=== PATIENT | female | born 1945 | race Caucasian/White ===

== ENCOUNTER 2016-07-30 07:20 | Day surgery (SDC) | payer MEDICARE ==
[~2016-07-30] VITALS: Ht 172.7 cm; Wt 78.0 kg
[~2016-07-30 07:20] MED LIST: BUPR150T9 PO; KLO1T PO; OMEP20CA11 PO; PROG1.3G2 VG; RANI150C4 PO
[2016-07-30 07:50] VITALS: BP 135/70; PULSE 56; RESP 16; O2SAT 98
[2016-07-30] MEDS ORDERED: fentaNYL-PF 50 mCg/mL 2 mL Inj IVPUSH PRN (08:00)
[2016-07-30] MEDS: 0.9% Sodium Chloride 1,000 ML ONE ×2 (08:08→08:16)
[2016-07-30 08:23] VITALS: BP 134/80; PULSE 58; RESP 14; O2SAT 95
[2016-07-30 08:38] VITALS: BP 133/77; PULSE 58; RESP 14; O2SAT 96
[2016-07-30 08:47] VITALS: BP 145/64; PULSE 59; RESP 14; O2SAT 97
--- NOTE | 2016-07-30 10:38 | ENDO ---
[address] [address] ENDOSCOPY PROCEDURE PATIENT: DJ HARRIS : 1945 MR#: [id number] ADMIT: 07/30/2016 JOB ID: [id number] DATE: 07/30/2016 PROCEDURE: Esophagogastroduodenoscopy. INDICATIONS: Epigastric pain. The patient's ASA classification is 2. Mallampati score is 2. MEDICATIONS: 1. Versed 3 mg. 2. Fentanyl 50 mcg. INSTRUMENT USED: GIF H 180 J. PROCEDURE DETAILS: After informed consent was obtained, the patient was brought into the GI suite, where she was placed on oxygen via nasal cannula and monitored with continuous pulse oximeter, telemetry and blood pressure monitoring. A time-out was performed. Then, she was placed in the left lateral decubitus position and medications were administered for sedation. A bite block was placed. The standard EGD scope was inserted through the bite block and advanced under direct visualization to the second portion of the duodenum without difficulty. FINDINGS: 1. Normal appearing duodenal bulb, first and second portion. Multiple random biopsies were obtained. 2. Normal appearing pylorus. 3. Normal appearing antrum and body. 4. Retroflexed views in the gastric body revealed a normal-appearing cardia and fundus. 5. Multiple random biopsies were obtained throughout the antrum and body of the stomach. 6. The GE junction was at approximately 41 cm and the squamocolumnar junction was at 39 cm. 7. At the squamocolumnar junction, there were two focal areas of ulceration. These measured approximately 3-4 mm in size. Appearance was consistent with esophagitis. 8. Remainder of the esophagus otherwise unremarkable. Multiple biopsies were obtained at the squamocolumnar junction. IMPRESSION: Mild ulcerative esophagitis. Otherwise normal exam to second portion of the duodenum. RECOMMENDATIONS: 1. Restart PPI. 2. Followup in GI clinic. 3. Reflux precautions. COMPLICATIONS: None. ESTIMATED BLOOD LOSS: Less than 5 mL.
--- NOTE | 2016-07-31 13:17 | PATH ---
SURGICAL PATHOLOGY Attending Physician:Estephania iPchardo CASE STATUS: Signed Out PATIENT NAME: JD HARRIS PID: [id number] : 1945 DATE COLLECTED:07/30/2016 17:02 SPECIMEN: 1: Duodenum, Biopsy 2: Gastric, Biopsy 3: Esophagus, Biopsy CLINICAL HISTORY: 1). DUODENUM BIOPSY 2). GASTRIC BIOPSY 3). DISTAL ESOPHAGUS BIOPSY FINAL DIAGNOSIS: 1.DUODENUM BIOPSY: FRAGMENTS OF NORMAL-APPEARING SMALL BOWEL MUCOSA. Normal delicate mucosal villi present. Negative for significant inflammation, dysplasia and malignancy. 2.GASTRIC BIOPSY: MILD CHRONIC GASTRITIS INVOLVING ANTRAL AND FUNDIC MUCOSA. Negative for evidence of Helicobacter. Negative for intestinal metaplasia. Negative for dysplasia and malignancy. 3.DISTAL ESOPHAGUS BIOPSY: FRAGMENTS OF SQUAMOUS MUCOSA AND GASTRIC CARDIA-TYPE MUCOSA NEGATIVE FOR SPECIALIZED METAPLASIA OF AGUILAR' S-TYPE ESOPHAGUS. CHRONIC INFLAMMATION AND REACTIVE EPITHELIAL CHANGES. Negative for dysplasia and malignancy. Eosinophils are not increased. ICD10 code K29.70 GROSS DESCRIPTION: The specimen is received in three formalin filled containers labeled with the patient's name. 1). Received in formalin and labeled "duodenum" and consists of 4 portions of tissue which aggregate to 0.4 x 0.4 x 0.2 CM. The specimen is entirely submitted in cassette 1A. 2). The specimen is sublabeled "gastric" and consists of 2 portions of tissue which aggregate to 0.3 x 0.3 x 0.2 CM. The specimen is entirely submitted in cassette 2A. 3). The specimen is sublabeled "distal esophagus" and consists of 2 portions of tissue which aggregate to 0.3 x 0.2 x 0.2 CM. The specimen is entirely submitted in cassette 3A. 07/30/2016 [facility] MICRO DESCRIPTION: See diagnosis. ICD-9 CODES: CPT CODES: 1: 65447 2: 00776 3: 53505 Electronically Signed Out Case Harper MD [facility] [address], [place] [address] Technical component performed at [facility], [facility] [address], [place], [address]
== END 2016-07-30 23:59 | disposition home or self-care (01) ==
LOC: END 07:20
PROVIDERS: ATTEND Internal Medicine Gastroenterology
DX: K29.50 Unspecified chronic gastritis without bleeding (principal); K22.10 Ulcer of esophagus without bleeding; R10.13 Epigastric pain; Z87.442 Personal history of urinary calculi
CPT/HCPCS: 43239; 88305; G0500; J2250; J3010; J7030